=== PATIENT | male | born 1995 | race Caucasian/White ===

== ENCOUNTER 2018-01-06 23:26 | Emergency (ER) | payer MEDICAID, OTHER ==
[~2018-01-06] VITALS: Ht 182.9 cm; Wt 65.3 kg
[2018-01-07 01:47] VITALS: BP 124/74
== END 2018-01-07 03:24 | disposition home or self-care (01) ==
LOC: ED 01-07 02:15
DX: S16.1XXA Strain of muscle, fascia and tendon at neck level, initial encounter (principal); Y04.8XXA Assault by other bodily force, initial encounter; Y93.89 Activity, other specified; Y92.488 Other paved roadways as the place of occurrence of the external cause; Y99.8 Other external cause status
CPT/HCPCS: 72020; 72050; 99284

== ENCOUNTER 2018-02-06 10:02 | Emergency (ER) | payer SELFPAY ==
[~2018-02-06] VITALS: Ht 182.9 cm; Wt 64.0 kg
[2018-02-06 10:04] VITALS: BP 102/68
[2018-02-06] MEDS ORDERED: AZITHROMYCIN 500 MG TABLET ONE (10:58)
[2018-02-06] MEDS ORDERED: LIDOCAINE-MPF 1%, 5ML ONE (10:58)
[2018-02-06] MEDS ORDERED: CEFTRIAXONE 250 MG ONE (10:58)
[2018-02-06] MEDS ORDERED: CEFTRIAXONE 250 MG IM ONE (11:00)
[2018-02-06] MEDS ORDERED: AZITHROMYCIN 500 MG TABLET PO ONE (11:00)
== END 2018-02-06 11:22 | disposition home or self-care (01) ==
LOC: ED 11:06
DX: Z20.2 Contact with and (suspected) exposure to infections with a predominantly sexual mode of transmission (principal); N34.1 Nonspecific urethritis; F17.200 Nicotine dependence, unspecified, uncomplicated
CPT/HCPCS: 87491; 87591; 96372; 99284; J0696

== ENCOUNTER 2019-10-26 12:12 | Emergency (ER) | payer MEDICAID, OTHER ==
[~2019-10-26] VITALS: Ht 182.9 cm; Wt 64.5 kg
[2019-10-26 12:18] VITALS: BP 106/75
--- NOTE | 2019-10-26 12:41 | NUR ---
PATIENT BROUGHT BACK FROM TRIAGE WITH CHIEF COMPLAINT OF RIGHT WRIST PAIN AFTER GLF LAST NIGHT. CMS INTACT
--- NOTE | 2019-10-26 13:16 | NUR ---
DISCHARGE INSTRUCTIONS REVIEWED
== END 2019-10-26 13:34 | disposition home or self-care (01) ==
LOC: ED 13:23
DX: S63.521A Sprain of radiocarpal joint of right wrist, initial encounter (principal); W19.XXXA Unspecified fall, initial encounter; Y93.89 Activity, other specified; Y92.488 Other paved roadways as the place of occurrence of the external cause; Y99.8 Other external cause status
CPT/HCPCS: 29260; 99283

== ENCOUNTER 2019-12-30 15:22 | Emergency (ER) | payer MEDICAID ==
[~2019-12-30] VITALS: Ht 182.9 cm; Wt 65.0 kg
--- NOTE | 2019-12-30 15:34 | NUR ---
24 Y/O MALE BIB AMBULANCE WITH C/O CP. PER REPORT PT WOKE UP AT 11AM WITH CHEST PAIN THAT WAS IN THE CENTER OF HIS CHEST. PER PT "I HAD SOME CHEST PAIN THIS MORNING. I WOKE UP WITH IT AND IT HASN'T GONE AWAY." NO C/O CHEST PAIN AT THIS TIME. 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 PT GIVEN 250 mL NS AND 325 ASPIRIN. NO C/O N/V/D, TRAUMA, SYNCOPE, SOB.
--- NOTE | 2019-12-30 15:37 | NUR ---
PT WAS ABLE TO AMBULATE WITH STEADY GAIT FROM EMS [facility] TO ROOM [facility]
--- NOTE | 2019-12-30 16:08 | NUR ---
PT OUT OF ROOM AT IMAGING.
--- NOTE | 2019-12-30 16:48 | NUR ---
PT RESTING ON [place] PLAYING ON CELL PHONE. NADN. NO NEEDS REQUESTED AT THIS TIME.
[2019-12-30] MEDS ORDERED: KETOROLAC 30 MG/1 ML ONE (17:30)
[2019-12-30] MEDS ORDERED: KETOROLAC 30 MG/1 ML IM ONE (17:30)
[2019-12-30 17:35] VITALS: BP 102/52
[2019-12-30] MEDS ORDERED: KETOROLAC 30 MG/1 ML IVPush ONE (18:00)
--- NOTE | 2019-12-30 18:36 | NUR ---
Patient/Caregiver given discharge instructions and they have confirmed that they understand the instructions. Patient ambulatory with steady gait. PT LEFT WITH ALL PERSONAL BELONGINGS.
--- NOTE | 2019-12-30 18:49 | NUR ---
Patient/Caregiver given discharge instructions and they have confirmed that they understand the instructions. Patient ambulatory with steady gait. PT LEFT WITH ALL PERSONAL BELONGINGS.
== END 2019-12-30 18:50 | disposition home or self-care (01) ==
LOC: ED 16:22
DX: R07.89 Other chest pain (principal); I30.9 Acute pericarditis, unspecified; F41.1 Generalized anxiety disorder
CPT/HCPCS: 71046; 93005; 96374; 99283; J1885

== ENCOUNTER 2020-01-14 15:35 | Emergency (ER) | payer MEDICAID ==
[~2020-01-14] VITALS: Ht 182.9 cm; Wt 67.3 kg
[2020-01-14 15:39] VITALS: BP 124/66
[2020-01-14] MEDS ORDERED: AZITHROMYCIN 500 MG TABLET PO ONE (16:30)
[2020-01-14] MEDS ORDERED: CEFTRIAXONE 250 MG IM ONE (16:30)
--- NOTE | 2020-01-14 18:16 | NUR ---
physics tutor: [facility] at this time.
[2020-01-14] MEDS ORDERED: CEFTRIAXONE 250 MG ONE (18:39)
[2020-01-14] MEDS ORDERED: AZITHROMYCIN 250 MG TABLET ONE (18:39)
--- NOTE | 2020-01-14 18:44 | NUR ---
[employer] ADMINISTERED PER EMAR. PT TBDC.
--- NOTE | 2020-01-14 18:50 | NUR ---
PT DISCHARGED HOME IN A STABLE CONDITION. DC INSTRUCTIONS WERE DISCUSSED WITH PT. PT VERBALIZED UNDERSTANDING. NO FURTHER QUESTIONS OR CONCERNS WERE EXPRESSED AT THAT TIME. PT AMBULATED TO DC DESK WITH A STEADY GAIT.
--- NOTE | 2020-01-17 11:32 | NUR ---
THROUGHPUT: SPOKE WITH PT REGARDING RESULTS. PT VERBALIZED UNDERSTANDING. PT STATES "I'M NOT HAVING ANY SYMPTOMS NO MORE." FAXED TO [facility],
== END 2020-01-14 18:52 | disposition home or self-care (01) ==
LOC: ED 18:30
DX: A56.01 Chlamydial cystitis and urethritis (principal)
CPT/HCPCS: 87491; 87591; 96372; 99283; J0696

== ENCOUNTER 2021-02-22 14:31 | Emergency (ER) | payer MEDICAID ==
[~2021-02-22] VITALS: Ht 182.9 cm; Wt 67.4 kg
--- NOTE | 2021-02-22 15:27 | NUR ---
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
[2021-02-22 15:35] LABS: MICROSCOPIC NOT IND
[2021-02-22] MEDS ORDERED: AZITHROMYCIN 500 MG TABLET ONE (16:16)
[2021-02-22] MEDS ORDERED: CEFTRIAXONE 1,000 MG ONE (16:17)
[2021-02-22] MEDS ORDERED: AZITHROMYCIN 500 MG TABLET PO ONE (16:30)
[2021-02-22] MEDS ORDERED: CEFTRIAXONE 1,000 MG IM ONE (16:30)
[2021-02-22 16:37] VITALS: BP 110/74
== END 2021-02-22 16:41 | disposition home or self-care (01) ==
LOC: ED 16:35
DX: A56.01 Chlamydial cystitis and urethritis (principal); A54.01 Gonococcal cystitis and urethritis, unspecified
CPT/HCPCS: 81003; 87491; 87591; 96372; 99283; J0696

== ENCOUNTER 2021-03-17 02:36 | Emergency (ER) | payer MEDICAID ==
[~2021-03-17] VITALS: Ht 182.9 cm; Wt 67.9 kg
--- NOTE | 2021-03-17 03:19 | NUR ---
pt complaining of generalized chest pain and right upper quadrant abdominal pain, pt is a pack day smoker and a daily drinker, all needs in reach, call light in reach
[2021-03-17] MEDS ORDERED: ACETAMINOPHEN 500 MG TABLET ONE (03:48)
[2021-03-17] MEDS ORDERED: ACETAMINOPHEN 500 MG TABLET PO ONE (04:00)
[2021-03-17 04:01] LABS: BASOPHILS % (AUTO) 1 % (0-1); EOSINOPHILS % (AUTO) 8 % (1-7); LYMPHOCYTES % (AUTO) 36 % (22-44); MD NO; MEAN CORPUSCULAR HEMOGLOBIN 31.4 pg (27.5-34.5); MEAN CORPUSCULAR HGB CONC 34.6 g/dL (33.2-36.2); MEAN PLATELET VOLUME 7.6 fL (7.4-10.4); MONOCYTES % (AUTO) 9 % (2-9); NEUTROPHILS % (AUTO) 47 % (42-75); PLATELET COUNT 212 x10^3/uL (130-400); RED BLOOD COUNT 5.24 x10^6/uL (4.38-5.82); RED CELL DISTRIBUTION WIDTH 13.5 % (9.4-14.8)
[2021-03-17 04:12] LABS: ALBUMIN 3.7 g/dL (3.4-5.0); ANION GAP 6 mmol/L (5-15); CALCIUM 9.1 mg/dL (8.5-10.1); CHLORIDE 108 mmol/L (98-107)
[2021-03-17 04:16] LABS: ALANINE AMINOTRANSFERASE 22 U/L (12-78); ALKALINE PHOSPHATASE 67 U/L (45-117); BILIRUBIN,TOTAL 0.5 mg/dL (0.2-1.0); CREATININE 0.94 mg/dL (0.7-1.3); TOTAL PROTEIN 7.2 g/dL (6.4-8.2)
--- NOTE | 2021-03-17 04:32 | NUR ---
pt laying in bed, a/ox4, all needs in reach, call light in reach, NAD, vital signs stable
--- NOTE | 2021-03-17 04:59 | NUR ---
pt laying in bed watching [employer] on phone, a/ox4, all needs in reach, call light in reach, pt states it hurts when he coughs, this RN stated once we get all labs and diagnostics back then we would be able to see what is going on and that MD would go and talk to him when that happens
[2021-03-17 05:52] VITALS: BP 98/60
== END 2021-03-17 05:56 | disposition home or self-care (01) ==
LOC: ED 03:09
DX: R10.13 Epigastric pain (principal); R07.89 Other chest pain; F17.210 Nicotine dependence, cigarettes, uncomplicated
CPT/HCPCS: 36415; 71045; 80053; 83690; 85025; 93005; 99406

== ENCOUNTER 2021-04-11 09:40 | Emergency (ER) | payer MEDICAID ==
[~2021-04-11] VITALS: Ht 182.9 cm; Wt 67.1 kg
[2021-04-11 09:44] VITALS: BP 114/70
--- NOTE | 2021-04-11 10:34 | NUR ---
URINE TUBED TO LAB AT THIS TIME. PT DENIES ANY OTHER NEEDS PERTAINING TO THIS VISIT AND IS D/C AT THIS TIME WITH D/C SUMMARY AND SCRIPTS. ALL QUESTIONS ANSWERED. PT AMBULATES WITH A STEADY GAIT TO REGISTRATION DESK FOR D/C HOME.
== END 2021-04-11 10:37 | disposition home or self-care (01) ==
LOC: ED 10:31
DX: A60.01 Herpesviral infection of penis (principal)
CPT/HCPCS: 87491; 87591; 99283